=== PATIENT | female | born 1970 ===

== ENCOUNTER 2016-11-27 19:59 | Emergency (ER) | payer MEDICARE, OTHER ==
[2016-11-27 20:20] VITALS: TEMP 98.4
[2016-11-27] MEDS ORDERED: LORAZEPAM 0.5 MG TAB PO PRN (20:31)
[2016-11-27] MEDS ORDERED: LORAZEPAM 0.5 MG TAB ONE (20:40)
[2016-11-27 20:42] LABS: BASOPHILS % (AUTO) 2 % (0-3); EOSINOPHILS % (AUTO) 3 % (0-9); HEMATOCRIT 29 % (35-47); MEAN CORPUSCULAR HGB CONC 30.3 gm/dl (32.0-36.0); MONOCYTES % (AUTO) 10.1 % (0-12); NEUTROPHILS % (AUTO) 69.8 % (37-80)
[2016-11-27 20:48] LABS: MEAN CORPUSCULAR VOLUME 61 fL (81-99)
[2016-11-27 20:57] LABS: ANISOCYTOSIS MOD AMT; HYPOCHROMASIA PRESENT
[2016-11-27 20:58] LABS: OVALOCYTES PRESENT; TEAR DROP CELLS PRESENT
[2016-11-27 21:00] LABS: ALBUMIN 3.6 gm/dl (3.4-5.0); ALT 35 IU/L (14-63); CALCIUM 9.1 mg/dl (8.5-10.1); GLOM FILT RATE 83 mL/min (>60); POTASSIUM 3.4 mMol/L (3.5-5.1); SODIUM 139 mMol/L (136-145)
[2016-11-27] MEDS ORDERED: ALUMINUM/MAGNESIUM 30 ML SUS PO ONE (21:23)
[2016-11-27] MEDS ORDERED: LIDOCAINE HCL 2% (VISCOUS) 20 ML SOL MT ONE (21:23)
[2016-11-27] MEDS ORDERED: ALUMINUM/MAGNESIUM 30 ML SUS ONE (21:24)
[2016-11-27 22:43] VITALS: BP 149/67; PULSE 97; RESP 23; O2SAT 98
== END 2016-11-27 22:33 | disposition home or self-care (01) | DRG 639 ==
LOC: ED 19:59
DX: E11.649 Type 2 diabetes mellitus with hypoglycemia without coma (principal); F41.9 Anxiety disorder, unspecified; R07.89 Other chest pain; K21.9 Gastro-esophageal reflux disease without esophagitis; Z79.4 Long term (current) use of insulin
CPT/HCPCS: 36415; 80053; 82962; 84484; 85025; 93005; 99284; 99285

== ENCOUNTER 2018-09-12 13:03 | Outpatient (CLI) | payer MEDICARE, OTHER ==
[2017-08-19 21:53] VITALS: O2SAT 99
[2018-09-13 06:50] LABS: *RHEUMATOID FACTOR <10 IU/mL (0-30)
[2018-09-14 06:57] LABS: *ANA SCREEN 1.6 U
== END 2018-09-12 13:04 | disposition home or self-care (01) | DRG 558 ==
LOC: CONVCARE 13:03
PROVIDERS: ATTEND Orthopaedic Surgery
DX: M65.311 Trigger thumb, right thumb (principal); M25.541 Pain in joints of right hand
CPT/HCPCS: 36415; 85651